=== PATIENT | male | born 1960 | race Caucasian/White ===

== ENCOUNTER 2020-09-28 14:22 | Emergency (ER) | payer OTHER, SELFPAY ==
[2020-09-28 14:30] VITALS: BP 128/82; PULSE 110; RESP 18; TEMP 37.2; O2SAT 99
--- NOTE | 2020-09-28 14:39 | ED.GENADULT ---
HPI - General Adult General Chief complaint: Dizziness Stated complaint: stomach prob,nausea,headache Time Seen by Provider: 09/28/20 14:42 Source: patient, RN notes reviewed and old records reviewed Mode of arrival: ambulatory Limitations: no limitations History of Present Illness HPI narrative: 60 year old male who presents to [facility] care with complaints of stomach churning, nausea, headache and feeling lightheaded intermittently for the past week. Patient states that he had a migraine headache which started on Wednesday decreasing in intensity as week has progressed, continues to have some headache pain in his temples, in back of his head and radiating to posterior right shoulder. Patient denies any URI symptoms, no fall or injury denies any history of COVID or exposure to sick contracts. Related Data Home Medications Medication Instructions Recorded Confirmed atorvastatin 10 mg PO DAILY 09/28/20 09/28/20 gabapentin 100 mg PO DAILY 09/28/20 09/28/20 hydrochlorothiazide 12.5 mg PO DAILY 09/28/20 09/28/20 levothyroxine 50 mcg PO DAILY 09/28/20 09/28/20 telmisartan 80 mg PO DAILY 09/28/20 09/28/20 Allergies Allergy/AdvReac Type Severity Reaction Status Date / Time No Known Allergies Allergy Verified 09/28/20 14:40 Review of Systems Review of Systems: Narrative: CONSTITUTIONAL: Denies fever, chills, or sweats. EYES: Denies visual changes, redness, or discharge. ENT: Denies rhinorrhea, congestion, sore throat, or otalgia. CARDIOVASCULAR: Denies chest pain, palpitations, or edema. RESPIRATORY: Denies cough or dyspnea. GASTROINTESTINAL: Denies abdominal pain,positive nausea, no vomiting, or diarrhea. GENITOURINARY: Denies dysuria or hematuria. SKIN: Denies rash or itching. MUSCULOSKELETAL: Denies back pain, joint pain, or myalgia. NEUROLOGIC: Positive headache,no numbness, or weakness at times some dizziness. PSYCHIATRIC: Denies anxiety or depression. All systems reviewed & are unremarkable except as noted in HPI and below PMFSH Past Medical History Medical History (Updated 09/28/20 @ 15:16 by Keisha Green NP) Crohn's disease Hypertension Hypothyroid Kidney stones Surgical History Surgical History (Updated 09/28/20 @ 15:59 by Keisha Green NP) History of carpal tunnel surgery of right wrist S/P cubital tunnel release right Family History Family History (Updated 09/28/20 @ 15:08 by Keisha Green NP) Mother Ovarian cancer Father Cerebrovascular accident Social History Social History (Updated 09/28/20 @ 15:38 by Keisha Green NP) Smoking status: Former smoker Tobacco type: cigarettes Alcohol intake: never Substance use: never Living arrangements: with family Gender identity (if verbalized by the patient): Male Comments At time of signature, agree with nursing past medical, surgical, social and family history. There is no relevant family history pertinent to the presenting complaint Exam Narrative: Exam Narrative: GENERAL: Well-appearing, well-nourished, and in no acute distress. HEAD: Normocephalic, atraumatic. EYES: PERRLA and EOMI. no nystagmus, denies any double vision. ENT: Nares clear, no rhinorrhea or epistaxis. Mucous membranes moist. TM's normal with good light reflex, throat pink with no lesions or exudate, no tonsil enlargement. NECK: Supple.no lymphadenopathy, no bruits or JVD CHEST: Clear to auscultation. No respiratory distress.SAO2 99% on room air HEART: Regular rate and rhythm. No murmur heard. Normal peripheral pulses. ABDOMEN: Soft, nontender, nondistended, normal active bowel sounds. EXTREMITIES: Normal range of motion. No edema. SKIN: Warm, dry, no rash. NEURO: No focal deficits. Alert and oriented x3.temporal headache to neck and radiating to right shoulder. Course Vital Signs Vital signs: Vital Signs Temperature 37.2 C 09/28/20 14:30 Pulse Rate 110 H 09/28/20 14:30 Respiratory Rate 18 09/28/20 14:30 Blood Pressure 128/82
[2020-09-28 14:43] VITALS: BP 128/82; PULSE 110; RESP 18; TEMP 37.2; O2SAT 99
[2020-09-28 14:58] VITALS: BP 143/84; PULSE 101
[2020-09-28 15:00] VITALS: BP 149/88; PULSE 110
[2020-09-28 15:02] VITALS: BP 151/88; PULSE 112
== END 2020-09-28 15:27 | disposition home or self-care (01) ==
PROVIDERS: Emergency Provider Registered Nurse; PCP Internal Medicine
DX: G43.109 Migraine with aura, not intractable, without status migrainosus (principal); R42 Dizziness and giddiness; K50.90 Crohn's disease, unspecified, without complications; I10 Essential (primary) hypertension; E03.9 Hypothyroidism, unspecified
CPT/HCPCS: 99213; G0463

== ENCOUNTER 2022-10-19 15:35 | Emergency (ER) | payer OTHER, SELFPAY ==
[2022-10-19 15:46] VITALS: BP 112/72; PULSE 106; RESP 18; TEMP 37.2; O2SAT 98
--- NOTE | 2022-10-19 16:28 | ED.GENADULT ---
HPI - General Adult General Chief complaint: Wound/Laceration Stated complaint: Puncture Wound/Right Foot Time Seen by Provider: 10/19/22 16:28 Source: patient, family, RN notes reviewed and old records reviewed Mode of arrival: ambulatory Limitations: no limitations History of Present Illness HPI narrative: 62-year-old male presents to express care with complaints of stepping on a nail causing puncture wound to his right foot right below base of great toe. Patient denies acute pain to area states he was tearing off shingles off of a roof and a nail was in the shingles and stepped on it going through shoe and into foot minimall depth with no active bleeding noted. Patient reports that his tetanus is not up to date. MD complaint: Stepped on nail Onset (ago): hour(s) (3) Severity scale (1-10): 2 Treatments prior to arrival: none Related Data Home Medications Medication Instructions Recorded Confirmed gabapentin 100 mg capsule 100 mg PO DAILY 09/28/20 10/19/22 hydrochlorothiazide 12.5 mg tablet 12.5 mg PO DAILY 09/28/20 10/19/22 levothyroxine 50 mcg tablet 50 mcg PO DAILY 09/28/20 10/19/22 telmisartan 80 mg tablet 80 mg PO DAILY 09/28/20 10/19/22 atorvastatin 40 mg tablet 40 mg PO DAILY 10/19/22 10/19/22 Allergies Allergy/AdvReac Type Severity Reaction Status Date / Time No Known Allergies Allergy Verified 09/28/20 14:40 Review of Systems Review of Systems: CONSTITUTIONAL: Denies fever, chills, or sweats. CARDIOVASCULAR: Denies chest pain, palpitations, or edema. RESPIRATORY: Denies cough or dyspnea. GASTROINTESTINAL: Denies abdominal pain, nausea, vomiting SKIN: Reports puncture wound to the plantar aspect of foot near 1st toe right foot caused from stepping on a nail 3 hours ago MUSCULOSKELETAL: Denies myalgia. NEUROLOGIC: Denies any present headache, numbness All systems reviewed & are unremarkable except as noted in HPI and below PMFSH Past Medical History Medical History (Updated 10/21/22 @ 19:24 by Keisha Green NP) Crohn's disease Hypertension Hypothyroid Kidney stones Surgical History Surgical History (Updated 09/28/20 @ 15:59 by Keisha Green NP) History of carpal tunnel surgery of right wrist S/P cubital tunnel release right Family History Family History (Updated 09/28/20 @ 15:08 by Keisha Grene NP) Mother Ovarian cancer Father Cerebrovascular accident Social History Social History (Updated 09/28/20 @ 15:38 by Keisha Green NP) Smoking status: Former smoker Tobacco type: cigarettes Alcohol intake: never Substance use: never Living arrangements: with family Gender identity (if verbalized by the patient): Male Comments At time of signature, agree with nursing past medical, surgical, social and family history. There is no relevant family history pertinent to the presenting complaint Exam Narrative: GENERAL: Well-appearing, well-nourished, and in no acute distress. HEAD: Normocephalic, atraumatic. EYES: PERRLA and EOMI. ENT: Nares clear, no rhinorrhea or epistaxis. Mucous membranes moist. NECK: Supple.no lymphadenopathy CHEST: Clear to auscultation. No respiratory distress.SAO2 98% on room air HEART: Regular rate and rhythm. No murmur heard. Normal peripheral pulses. ABDOMEN: Soft, nontender, nondistended, normal active bowel sounds. EXTREMITIES: Normal range of motion. No edema. SKIN: Warm, dry. Small puncture wound to the right foot plantar aspect below right great toe. Foot soaked in Betadine solution and warm water in clinic and rinsed with minimal depth noted of puncture wound, Triple antibiotic ointment and band-aide dressing applied, no acute pain verbalized, site is somewhat tender on palpation. NEURO: No focal deficits. Alert and oriented x3. Course Course Emergency Course: Patient is aware of diagnosis, understands and agrees to treatment plan. Anticipatory guidance given. Patient agrees to follow-up as directed and is aware
[2022-10-19] MEDS: TETANUS,DIPHTHERIA,AC PERTUSSIS ADULT (0.5 ML) BOOSTRIX IM (16:39)
== END 2022-10-19 17:00 | disposition home or self-care (01) ==
PROVIDERS: Emergency Provider Registered Nurse; PCP Student in an Organized Health Care Education/Training Program
DX: S91.331A Puncture wound without foreign body, right foot, initial encounter (principal); E03.9 Hypothyroidism, unspecified; I10 Essential (primary) hypertension; Z87.891 Personal history of nicotine dependence; Z23 Encounter for immunization; W45.0XXA Nail entering through skin, initial encounter; Y92.008 Other place in unspecified non-institutional (private) residence as the place of occurrence of the external cause
CPT/HCPCS: 90471; 90715; 99213; G0463

== ENCOUNTER 2024-05-19 13:15 | Emergency (ER) | payer OTHER, SELFPAY ==
[2024-05-19 13:26] VITALS: BP 106/67; PULSE 92; RESP 20; TEMP 36.8; O2SAT 97
--- NOTE | 2024-05-19 13:58 | ED_ITS ---
HPI - Wound/Laceration General Chief Complaint: Wound/Laceration Stated Complaint: Laceration to Head Time Seen by Provider: 05/19/24 13:58 Source: patient Mode of arrival: ambulatory Limitations: no limitations History of Present Illness HPI narrative: 64-year-old male presented for complaint of a laceration to the back of the head sustained just prior to arrival. He states he struck his head in the basement on some duct work. Denies headache, dizziness, neck pain, nausea, vomiting or confusion. cleansed site and said it bled a lot. Related Data Home Medications ?Medication ?Instructions ?Recorded ?Confirmed ?Last Taken ?Type gabapentin 100 mg capsule 100 mg PO DAILY 09/28/20 10/19/22 Unknown History hydrochlorothiazide 12.5 mg tablet 12.5 mg PO DAILY 09/28/20 10/19/22 Unknown History levothyroxine 50 mcg tablet 50 mcg PO DAILY 09/28/20 10/19/22 Unknown History telmisartan 80 mg tablet 80 mg PO DAILY 09/28/20 10/19/22 Unknown History atorvastatin 40 mg tablet 40 mg PO DAILY 10/19/22 10/19/22 Unknown History Allergies Allergy/AdvReac Type Severity Reaction Status Date / Time No Known Allergies Allergy Verified 09/28/20 14:40 Review of Systems Review of Systems: CONSTITUTIONAL: Denies body aches, fever, chills, or sweats. EYES: Denies visual changes, redness, or discharge. ENT: Denies rhinorrhea, congestion CARDIOVASCULAR: Denies chest pain, palpitations, or edema. RESPIRATORY: Denies cough or dyspnea. GASTROINTESTINAL: Denies abdominal pain, nausea, vomiting, or diarrhea. SKIN: per HPI MUSCULOSKELETAL: Denies back pain, joint pain, or myalgia. NEUROLOGIC: Denies headache, numbness, tingling, or weakness. [facility] Past Medical History Medical History Hypothyroid Crohn's disease Kidney stones Hypertension Surgical History Surgical History S/P cubital tunnel release right History of carpal tunnel surgery of right wrist Family History Family History Mother Ovarian cancer Father Cerebrovascular accident Social History Social History Smoking status: Former smoker Tobacco type: cigarettes Alcohol intake: never Substance use: never Living arrangements: with family Gender identity (if verbalized by the patient): Male Comments At time of signature, I have reviewed and agree with nursing past medical, surgical, social and family history unless otherwise noted. Please see nursing chart for further information. There is no relevant family history pertinent to the presenting complaint Exam Narrative: GENERAL: Well-appearing HEAD: Linear 1.5cm laceration to right parietal scalp, no active bleeding, edges are approximated. EYES: conjunctivae clear, and EOMI. ENT: Mucous membranes moist. Oropharynx without edema, erythema or lesions. NECK: Supple. No lymphadenopathy CHEST: Clear to auscultation. HEART: Regular rate and rhythm. SKIN: Warm, dry. NEURO: Alert and oriented x3. Course Course Emergency Course: Patient is aware of diagnosis, understands and agrees to treatment plan. Anticipatory guidance given. Patient agrees to follow-up as directed and is aware of reasons to seek care at the emergency department. Portions of this record may have been created with voice recognition software Level of Care: Express Care Visit Vital Signs Vital signs: Vital Signs Temperature 98.2 F 05/19/24 13:26 Pulse Rate 92 05/19/24 13:26 Respiratory Rate 20 05/19/24 13:26 Blood Pressure 106/67 05/19/24 13:26 Pulse Oximetry 97 05/19/24 13:26 Oxygen Delivery Room Air 05/19/24 13:26 Temperature 98.2 F 05/19/24 13:26 Pulse Rate 92 05/19/24 13:26 Respiratory Rate 20 05/19/24 13:26 Blood Pressure 106/67 05/19/24 13:26 Pulse Oximetry 97 05/19/24 13:26 Oxygen Delivery Room Air 05/19/24 13:26 Reviewed Procedures Laceration head laceration: Size (cm): 1.5 Description: linear and clean Depth: simple, single layer Pre-repair: wound explored and other (cleansed with skintegrity) ====== Skin Level ====== Skin layer closed with: josette (#3) ====== Subcutaneous Layer ====== ====== Muscle Layer ====== ====== Tendon Layer ====== Dressing: The procedure and its alternatives were reviewed with patient. Risks were reviewed with patient including infection and damage to nearby structures. Patient provided verbal informed consent. The patient was positioned appropriately. Wound was explored for abnormalities including infection and foreign bodies. #3 josette placed with wound edges approximated. Patient tolerated well, no complications. Dressing applied per RN. MDM - Wound/Laceration MDM Narrative Medical decision making narrative: Discussed physical exam findings; tolerated josette to wound. Advised supportive measures and signs/symptoms to go to the ER. Pt is appropriate for outpt treatment and f/u. Differential Diagnosis Differential diagnosis: Likely laceration, abrasion and avulsion of skin Discharge Plan Discharge Clinical Impression: Laceration of scalp Patient Disposition: Home, Self-Care Condition: Stable Instructions: Antibiotic Form, Head Laceration (ED) Additional Instructions: Your josette need to be removed in 7-10 days. You can return to clinic or discuss removing them with your PCP. Wear the dressing that has been applied for the first 24 hours to allow a scab to start forming. After this, you may remove and wash as normal with soap and water. Do NOT wash with peroxide or alcohol. Take tylenol or ibuprofen at home for pain Follow up with your PCP Go to the ER with any signs of infection such as redness, swelling, increased pain, or drainage. Patient Language: Occitan Prescriptions: No Action levothyroxine 50 mcg tablet 50 mcg PO DAILY telmisartan 80 mg tablet 80 mg PO DAILY gabapentin 100 mg capsule 100 mg PO DAILY hydrochlorothiazide 12.5 mg tablet 12.5 mg PO DAILY sumatriptan succinate [Imitrex] 50 mg tablet See Rx Instructions .ROUTE .COMPLEX Qty: 10 0RF Rx Instructions: take 1 tab at onset of headache; if no relief may repeat 1 tab after at least 2 hrs; max = 4 tabs/24 hr atorvastatin 40 mg tablet 40 mg PO DAILY cephalexin 500 mg capsule 500 mg PO Q8H Qty: 30 0RF mupirocin 2 % ointment 1 applic topical BID Qty: 22 0RF Follow-up/Referrals: David,DO [place] [Primary Care Provider] - Time of Disposition: 14:06
== END 2024-05-19 14:16 | disposition home or self-care (01) ==
PROVIDERS: Emergency Provider Nurse Practitioner Family; PCP Student in an Organized Health Care Education/Training Program
DX: S01.01XA Laceration without foreign body of scalp, initial encounter (principal); W22.8XXA Striking against or struck by other objects, initial encounter; Z87.891 Personal history of nicotine dependence; I10 Essential (primary) hypertension; E03.9 Hypothyroidism, unspecified; K50.90 Crohn's disease, unspecified, without complications
CPT/HCPCS: 12001; 99212; G0463